=== PATIENT | female | born 1970 | race Caucasian/White ===

== ENCOUNTER 2018-12-08 22:29 | Emergency (ER) | payer OTHER ==
[~2018-12-08] VITALS: Ht 162.6 cm; Wt 72.6 kg
[2018-12-08 22:39] VITALS: BP 110/72
--- NOTE | 2018-12-08 23:00 | NUR ---
PT BIBA FOR SI, PT WAS AT HOME AND IN VERBAL ARGUMENT WITH PT STATES THAT TRIGGERED HER TO CUT HERSELF , PT CUT HER LEFT FOREARM AND STATES SHE CUT HER VAGINAL AREA. NO OPEN SKIN NOTED TO VAGINAL AREA, SUPERFICIAL LACERATIONS NOTED TO FOREARM, NO ACTIVE BLEEDING. PT STATED TO ME SHE NO LONGER FEELS SUICIDAL AND WANTS TO BE HOME WITH HER KIDS. PT IS TEARFUL WHEN SPEAKING. PT ADMITS TO DRINKING TONIGHT 4-5 BEERS. PT IN HOPSITAL GOWN, BELONGINGS W/ SECURITY. SITTER AT BEDSIDE. PMH HYPOTHYROID, DEPRESSION, SI
[2018-12-08 23:05] LABS: BASOPHILS # (AUTO) 0.1 K/uL (0.00-0.22); BASOPHILS % (AUTO) 1.3 % (0.0-2.0); EOSINOPHILS # (AUTO) 0.3 K/uL (0-0.4); EOSINOPHILS % (AUTO) 3.9 % (0.0-4.0); HEMATOCRIT 41.1 % (36-48); LYMPHOCYTES # (AUTO) 3.5 K/uL (2.5-16.5); LYMPHOCYTES % (AUTO) 40.2 % (20.5-51.1); MEAN CORPUSCULAR HEMOGLOBIN 34 pg (27-31); MEAN CORPUSCULAR HGB CONC 34 g/dL (33-37); MEAN CORPUSCULAR VOLUME 100.4 fL (80-94); MONOCYTES # (AUTO) 0.5 K/uL (0.8-1.0); MONOCYTES % (AUTO) 5.8 % (1.7-9.3); NEUTROPHILS # (AUTO) 4.2 K/uL (1.8-7.7); NEUTROPHILS % (AUTO) 48.8 % (42.2-75.2); PLATELET COUNT (AUTO) 224 K/uL (140-450); RED BLOOD CELL COUNT(AUTO) 4.09 MIL/uL (4.20-5.40); RED CELL DISTRIBUTION WIDTH 13.2 % (11.6-13.7); WHITE BLOOD COUNT (AUTO) 8.7 K/uL (4.8-10.8)
--- NOTE | 2018-12-08 23:13 | NUR ---
dr pimentel at bedside evaluating pt.
[2018-12-08 23:14] LABS: BARBITURATE, URINE NEG. ng/ml (NEG <=200); BENZODIAZEPINE, URINE NEG. ng/mL (NEG <=200); CANNABINOID, URINE NEG. ng/mL (NEG <=50); COCAINE, URINE NEG. ng/mL (NEG <=300); OPIATE, URINE NEG. ng/mL (NEG <=2000); PHENCYCLIDINE SCREEN,URINE NEG. ng/mL (NEG <=25)
[2018-12-08 23:19] LABS: ANION GAP 11.2 (8-16); CARBON DIOXIDE 29.4 mmol/L (21-32); CREATININE 0.7 mg/dL (0.6-1.3); POTASSIUM 3.6 mmol/L (3.5-5.1)
[2018-12-08 23:23] LABS: ACETAMINOPHEN < 0.5 ug/ml (10-30); SALICYLATE < 2.8 mg/dL (2.8-20.0)
[2018-12-08 23:27] LABS: ALBUMIN 3.8 g/dL (3.4-5.0); TOTAL BILIRUBIN 0.4 mg/dL (0.0-1.0)
--- NOTE | 2018-12-08 23:40 | NUR ---
PT SON AT BEDSIDE.
--- NOTE | 2018-12-09 00:21 | NUR ---
SPOKE WITH DARLINE FROM [facility] FOR REPORT ON PT, WILL FAX PT CHART AND HOLD FOR BED PLACEMENT.
[2018-12-09] MEDS ORDERED: ACETAMINOPHEN EXTRA STRENGTH 500 MG TAB PO ONE (01:10)
--- NOTE | 2018-12-09 01:30 | NUR ---
PT SLEEPING COMFORTABLY. AROUSABLE WITH VERBAL STIMULI. VSS. REQUESTED TYLENOL FOR MOY.
--- NOTE | 2018-12-09 02:30 | NUR ---
PT SLEEPING COMFORTABLY. AROUSABLE WITH VERBAL STIMULI. VSS. DENIES PAIN/DISCOMFORT AT THIS TIME.
--- NOTE | 2018-12-09 03:00 | NUR ---
ASSUMED CARE OF PT AT THIS TIME. PT SLEEPING. PT IS EASILY AROUSABLE TO VOICE/NAME. PT IS A&OX4, ANSWERS ALL QUESTIONS APPROPRIATELY. LEONARD KAN, EMT AT BEDSIDE. PT AWAITS [facility] TRANSFER; WILL CONTINUE TO MONITOR.
--- NOTE | 2018-12-09 05:00 | NUR ---
SPOKE W/ SANIYA AT [facility]. AWAITING ACCEPTANCE AT THIS TIME. PT RESTING COMFORTABLY, AROUSABLE TO TO VOICE/NAME. NAD. VSS. SITTER AT BEDSIDE. WILL CONTINUE TO MONITOR.
--- NOTE | 2018-12-09 05:30 | NUR ---
Patient to be transferred to [facility]. Pt is being transferred due to PSHYCHIATRIC NECESSITY. Receiving facility has accepting physician and available space. ER physician has signed transfer form. Patient belongings inventoried and will be sent with patient. Copy of nursing notes, lab reports, EKG, Physicians Orders and X-rays to be sent with patient. Report called to MEHRDAD JUNE at receiving facility. [facility] ambulance service has been called for transfer. ETA is 60-90 MINUTES.
--- NOTE | 2018-12-09 07:04 | NUR ---
[facility] AT BEDSIDE FOR TRANSPORT. REPORT GIVEN TO TRANSPORT TEAM. PATIENT STABLE, [facility] AT TIME OF TRANSPORT.
[2018-12-09 07:08] VITALS: BP 119/61
--- NOTE | 2018-12-09 07:19 | NUR ---
PT LEFT UNIT WITH TRANSPORTATION TEAM IN STABLE CONDITION. ALL PERSONAL BELONGINGS WITH PT.
== END 2018-12-09 07:08 ==
LOC: MED 22:29
DX: R45.851 Suicidal ideations (principal); E07.9 Disorder of thyroid, unspecified; Z91.09 Other allergy status, other than to drugs and biological substances
CPT/HCPCS: 36415; 80053; 80305; 85025; 99285; G0480; G0482; 93005

== ENCOUNTER 2019-04-08 03:55 | Emergency (ER) | payer OTHER ==
[~2019-04-08] VITALS: Ht 162.6 cm; Wt 81.6 kg
--- NOTE | 2019-04-08 03:55 | NUR ---
PT AMBULATED TO BED 6.
[2019-04-08 04:00] VITALS: BP 115/60
--- NOTE | 2019-04-08 04:20 | NUR ---
PT BIBA FOR SUICIDAL IDEATION AND ETOH. PT IS ON A 5150 HOLD FOR SELF-HARM. PT IS AWAKE AND ALERT. PT ADMITTED TO DRINKING X6 24OZ BEERS. DENIED ANY DRUG USE. PER PT "I FELL DOWN THE STAIRS AT MY HOUSE AND HIT MY HEAD." PT HAS SWELLING ABOVE LEFT EYEBROW S/P MECHANICAL FALL DOWN STAIRS. PAIN LEVEL 6/10 THROBBING PAIN. PT ALSO HAS SELF-INFLICTED LACERATIONS ACROSS LEFT ARM FROM A RAZOR FROM A PREVIOUS ATTEMPT OF SUICIDE. PT DENIES FEELING SUICIDAL AT THIS TIME. PT STATES "MY FAMILY DOESN'T CARE ABOUT ME AND THEY DON'T CARE ABOUT HOW I FEEL" [facility] AND WAS ALCOHOL FREE FOR 45 DAYS AND RELAPSED TODAY. ALLERGIES: METOCLOPRAMIDE. MED HX: ANXIETY AND DEPRESSION. SAFETY MEASURES IN PLACE. BED IN LOWEST POSITION. BED RAILS UP X2. ERMD AT BEDSIDE.
[2019-04-08 04:41] LABS: APPEARANCE,URINE CLEAR (CLEAR); BILIRUBIN,URINE NEGATIVE (NEGATIVE); BLOOD, URINE NEGATIVE (NEGATIVE); COLOR,URINE YELLOW (YELLOW); LEUKOCYTE ESTERASE ,URINE NEGATIVE (NEGATIVE); NITRITE, URINE NEGATIVE (NEGATIVE); PH,URINE 5.5 (5.0-9.0); UGLUCOSE NEGATIVE (NEGATIVE)
[2019-04-08 04:47] LABS: BASOPHILS # (AUTO) 0.1 K/uL (0.00-0.22); BASOPHILS % (AUTO) 1.1 % (0.0-2.0); EOSINOPHILS # (AUTO) 0.3 K/uL (0-0.4); EOSINOPHILS % (AUTO) 3.4 % (0.0-4.0); HEMATOCRIT 43.8 % (36-48); HEMOGLOBIN 14.9 g/dL (12.0-16.0); LYMPHOCYTES # (AUTO) 4.4 K/uL (2.5-16.5); MEAN CORPUSCULAR HEMOGLOBIN 35 pg (27-31); MEAN CORPUSCULAR HGB CONC 34 g/dL (33-37); MEAN CORPUSCULAR VOLUME 101.3 fL (80-94); MONOCYTES # (AUTO) 0.4 K/uL (0.8-1.0); MONOCYTES % (AUTO) 4.5 % (1.7-9.3); NEUTROPHILS # (AUTO) 4.5 K/uL (1.8-7.7); PLATELET COUNT (AUTO) 251 K/uL (140-450); RED BLOOD CELL COUNT(AUTO) 4.33 MIL/uL (4.20-5.40); RED CELL DISTRIBUTION WIDTH 12.7 % (11.6-13.7); WHITE BLOOD COUNT (AUTO) 9.9 K/uL (4.8-10.8)
[2019-04-08 04:52] LABS: BARBITURATE, URINE NEG. ng/ml (NEG <=200); BENZODIAZEPINE, URINE NEG. ng/mL (NEG <=200); CANNABINOID, URINE NEG. ng/mL (NEG <=50); COCAINE, URINE NEG. ng/mL (NEG <=300); OPIATE, URINE NEG. ng/mL (NEG <=2000); PHENCYCLIDINE SCREEN,URINE NEG. ng/mL (NEG <=25)
[2019-04-08 05:02] LABS: ANION GAP 17.3 (8-16); CARBON DIOXIDE 26.5 mmol/L (21-32); CREATININE 0.6 mg/dL (0.6-1.3); POTASSIUM 3.8 mmol/L (3.5-5.1)
--- NOTE | 2019-04-08 05:16 | NUR ---
ATTEMPTED TO CALL FAMILY MEMBER ROHELIO. SHELLY CASTAÑEDA.
--- NOTE | 2019-04-08 05:25 | NUR ---
PT LEFT FOR CT VIA WHEEL CHAIR WITH HEAD SWAMPER AND EMT
--- NOTE | 2019-04-08 05:40 | NUR ---
PT AMBULATED TO RESTROOM WITH EMT AT PT SIDE
--- NOTE | 2019-04-08 06:05 | NUR ---
ATTEMPTED TO CALL FAMILY MEMBER FOR SECOND TIME PER PT REQUEST AT .
[2019-04-08] MEDS ORDERED: IBUPROFEN 400 MG TAB PO ONE (06:15)
--- NOTE | 2019-04-08 06:15 | NUR ---
PT C/O HEADACHE. PAIN LEVEL 8/10. ERMD MADE AWARE.
--- NOTE | 2019-04-08 06:41 | NUR ---
PT RESTING IN BED COMFORTABLY WITH EYES CLOSED. VSS. WILL CONTINUE TO MONITOR.
--- NOTE | 2019-04-08 07:15 | NUR ---
TRANSFER OF CARE AND REPORT GIVEN TO OLGA MARI
--- NOTE | 2019-04-08 07:50 | NUR ---
LAB AT BEDSIDE FOR REPEAT DRAW.
--- NOTE | 2019-04-08 07:54 | NUR ---
PT AMBULATED TO BATHROOM, EVEN STEADY GAIT.
--- NOTE | 2019-04-08 07:57 | NUR ---
PT PROVIDED WITH BREAKFAST TRAY.
[2019-04-08 08:32] LABS: ACETAMINOPHEN < 0.5 ug/ml (10-30); SALICYLATE < 2.8 mg/dL (2.8-20.0)
--- NOTE | 2019-04-08 08:41 | NUR ---
Telepsychiatry consultation ordered as requested by Dr. Swift.
--- NOTE | 2019-04-08 09:18 | NUR ---
SPOKE WITH DARREN FROM [facility], SHE IS REQUESTING WE SEND THE CHART AND HOLD TO [facility] AND THEY WILL FIND PLACEMENT AND ARRANGE TRANSPORTATION.
--- NOTE | 2019-04-08 09:52 | NUR ---
PT RESTING IN BED, AWAKE AT THIS TIME
--- NOTE | 2019-04-08 10:54 | NUR ---
HOMELESS ASSESSMENT NOT DONE. PT IS NOT HOMELESS
--- NOTE | 2019-04-08 10:54 | NUR ---
Patient discharged with v/s stable. Written and verbal after care instructions given and explained. Patient verbalized understanding. Ambulatory with steady gait. All questions addressed prior to discharge. Advised to follow up with PMD. PT IS BEING PICKED UP BY HER DAUGHTER. PT INFORMED OF FOLLOW UP APPT WITH [facility] FOR TODAY AT 2PM.
[2019-04-08 10:55] VITALS: BP 122/63
== END 2019-04-08 10:59 | disposition home or self-care (01) ==
LOC: MED 03:55
DX: F10.129 Alcohol abuse with intoxication, unspecified (principal); R46.89 Other symptoms and signs involving appearance and behavior; F32.9 Major depressive disorder, single episode, unspecified; F41.9 Anxiety disorder, unspecified; E07.9 Disorder of thyroid, unspecified; Z88.8 Allergy status to other drugs, medicaments and biological substances
CPT/HCPCS: 36415; 70450; 80048; 80305; 81003; 81025; 85025; 99284; G0480; G0482